=== PATIENT | male | born 1960 | race Caucasian/White ===

== ENCOUNTER 2018-07-14 11:50 | Emergency (ER) | payer MEDICARE, OTHER ==
[2018-07-14 12:37] VITALS: BP 102/70
--- NOTE | 2018-07-14 13:05 | UC ---
Respiratory Complaint HPI - HPI Summary HPI Summary: 57-year-old male presents with caregiver reporting 4 day history of nasal congestion, runny nose, and a nonproductive cough. States he was examined by the nurse at his alf today and was noted to have a temperature of 103 F. Denies ear pain, sore throat, chest pain, shortness of breath, abdominal pain, nausea, or vomiting. - History of Current Complaint Chief Complaint: UCRespiratory Stated Complaint: FEVER,CHEST CONGESTION Time Seen by Provider: 07/14/18 12:31 Hx Obtained From: Patient Pain Intensity: 0 - Allergies/Home Medications Allergies/Adverse Reactions: Allergies Allergy/AdvReac Type Severity Reaction Status Date / Time No Known Allergies Allergy Verified 07/14/18 12:25 Home Medications: Home Medications Aspirin EC TAB* [Ecotrin EC Low Dose 81 MG*] 81 mg PO DAILY 07/14/18 [History Confirmed 07/14/18] Atorvastatin* [Lipitor*] 20 mg PO DAILY 07/14/18 [History Confirmed 07/14/18] Calcium Carbonate CHEW TAB* [Tums*] 1,000 mg PO BID 07/14/18 [History Confirmed 07/14/18] PMH/Surg Hx/FS Hx/Imm Hx Endocrine History: Dyslipidemia GI/ History: Gastroesophageal Reflux - Surgical History Surgical History: Yes Surgery Procedure, Year, and Place: HERNIA REPAIR, [facility] - Family History Known Family History: Positive: Non-Contributory - Social History Occupation: Disabled Lives: [employer] Alcohol Use: Occasionally Substance Use Type: Marijuana Substance Use Comment - Amount & Last Used: BULMARO Smoking Status (MU): Heavy Every Day Tobacco Smoker Type: Cigarettes Amount Used/How Often: 1/2 PPD Review of Systems All Other Systems Reviewed And Are Negative: Yes Constitutional: Positive: Fever Skin: Negative: Rash ENT: Positive: Nasal Discharge, Sinus Congestion. Negative: Sore Throat, Ear Ache, Sinus Pain/Tenderness Respiratory: Positive: Cough. Negative: Shortness Of Breath Cardiovascular: Negative: Palpitations, Chest Pain Gastrointestinal: Negative: Abdominal Pain, Vomiting, Diarrhea, Nausea Genitourinary: Positive: Negative Musculoskeletal: Positive: Negative Neurological: Positive: Negative Is Patient Immunocompromised?: No Physical Exam - Summary Physical Exam Summary: GENERAL APPEARANCE: Well developed, well nourished, alert and cooperative, and appears to be in no acute distress. EYES: Left eye absent. Right eye conjunctiva clear. No drainage. EARS: External auditory canals membranes clear, hearing grossly intact. Right TM erythematous and bulging with large effusion. NOSE: Moderate to severe nasal congestion. THROAT: Pharyngeal cobblestoning. Post-nasal drip. No tonsilar inflammation, swelling, exudate, or lesions. Uvula midline. NECK: Neck supple, non-tender without lymphadenopathy. CARDIAC: Normal S1 and S2. No S3, S4 or murmurs. Rhythm is regular. There is no peripheral edema, cyanosis or pallor. Extremities are warm and well perfused. Capillary refill is less than 2 seconds. Peripheral pulses intact. LUNGS: Clear to auscultation without rales, wheezing or diminished breath sounds. Mild upper airway rhonchi. ABDOMEN: Positive bowel sounds. Soft, nondistended, nontender. No guarding or rebound. No masses or hepatosplenomegally. MUSKULOSKELETAL: ROM intact to all extremities. No joint erythema or tenderness. Normal muscular development. Normal gait. SKIN: Skin normal color, texture and turgor with no lesions or eruptions. Triage Information Reviewed: Yes Vital Signs: Initial Vital Signs Temp 99.7 F 07/14/18 12:28 Pulse 86 07/14/18 12:28 Resp 18 07/14/18 12:28 BP 102/70 07/14/18 12:28 Pulse Ox 96 07/14/18 12:28 Vital Signs Reviewed: Yes Diagnostics - Radiology No standard instances Radiology Interpretation Completed By: Radiologist Summary of Radiographic Findings: Order Information: CHEST PA LAT 2 VWS. Accession Number: [id number]. CPT: 82515. INDICATION: Cough, fever, congestion. COMPARISON: No relevant prior exams available on the [facility] for comparison. TECHNIQUE: Dual energy PA and routine lateral views of the chest were obtained. REPORT: Small dependent LEFT pleural effusion. Mild airspace consolidation at the bilateral lower lung zones. Negative for pneumothorax. The heart, pulmonary vasculature, and mediastinal contours are unremarkable. RIGHT upper quadrant surgical clips. IMPRESSION: #. The constellation of findings favors mild inflammatory infiltrates/pneumonia at the lung bases and small LEFT pleural effusion. Radiographic follow-up after therapy suggested to assess for resolution. Respiratory Course/Dx - Course Course Of Treatment: 57-year-old male presents with caregiver reporting 4 day history of nasal congestion, runny nose, and a nonproductive cough. States he was examined by the nurse at his alf today and was noted to have a temperature of 103 F. Denies ear pain, sore throat, chest pain, shortness of breath, abdominal pain, nausea, or vomiting. Afebrile. Vital signs stable. Exam revealed moderate to severe nasal congestion, right bulging erythematous TM with a large effusion, pharyngeal cobblestoning without tonsillar swelling or exudate, no cervical lymphadenopathy, clear bilateral breath sounds with some upper airway rhonchi, and otherwise unremarkable exam. Chest x-ray showed mild inflammatory infiltrates/pneumonia at the lung bases and small left pleural effusion. Discussed findings with patient. I will start him on doxycycline 100 mg twice a day 10 days to treat for a required pneumonia as well as right otitis media. Also recommending symptomatic treatment with fluticasone nasal spray and over- the-counter Sudafed for his nasal congestion as well and Tessalon Perles one capsule every 8 hours as needed for cough. He is to follow-up with his primary care provider in 3-5 days for recheck of symptoms. Anticipatory guidance and warning symptoms were reviewed with the patient and caregiver. Verbalized understanding and agreed with plan of care. - Differential Dx/Diagnosis Differential Diagnosis/HQI/PQRI: Bronchitis, Exacerbation Of COPD, Lower Resp Infection, Other - URI Provider Diagnosis: CAP (community acquired pneumonia), Right otitis media Discharge - Sign-Out/Discharge Documenting (check all that apply): Patient Departure All imaging exams completed and their final reports reviewed: Yes - Discharge Plan Condition: Stable Disposition: HOME Prescriptions: Benzonatate CAP* [Tessalon 100 MG CAP*] 100 mg PO TID PRN #30 cap PRN Reason: Cough Doxycycline Hyclate 100 mg PO BID #20 tablet Fluticasone NASAL SPRAY 50MCG* [Flonase NASAL SPRAY 50MCG*] 2 spray BOTH NARES DAILY #1 btl Patient Education Materials: Ear Infection (ED), Community Acquired Pneumonia ( ED) Referrals: Natasha Calderón MD [Primary Care Provider] - 3 Days Additional Instructions: The chest x-ray performed in the clinic today showed a possible bilateral pneumonia and your exam revealed an ear infection of the right ear. We will treat you with an antibiotic for the infections. Start doxycycline 100 mg 1 tab twice a day for 10 days. You should avoid milk products or use of TUMS for at least 2 hours before or after taking the antibiotic. You will also need to avoid sun exposure or take appropriate precautions including using a hat, long sleeves and pants, and sunscreen as this medication will cause you to burn more easily. Drink plenty of fluids to avoid dehydration especially if you are running any fever. Use fluticasone (Flonase) nasal spray 2 sprays each nostril once daily. You may also use an over the counter decongestant such as Sudafed according to directions as needed for congestion. Take Tessalon Perles 1 capsule every 8 hours as needed for cough. Take over the counter acetaminophen (Tylenol) or ibuprofen (Advil, Motrin) according to directions as needed for pain or fever. Follow up with your primary care provider in 3-5 days for recheck of symptoms. Seek immediate medical attention in the emergency room if you have fever greater than 100.5 F despite taking acetaminophen or ibuprofen, have chest pain , difficulty breathing, are unable to swallow, or have any worsening of symptoms. - Billing Disposition and Condition Condition: STABLE Disposition: Home
== END 2018-07-14 13:41 | disposition home or self-care (01) ==
LOC: UCCORT 11:50
DX: J18.9 Pneumonia, unspecified organism (principal); H66.91 Otitis media, unspecified, right ear; R09.81 Nasal congestion; R09.89 Other specified symptoms and signs involving the circulatory and respiratory systems; E78.5 Hyperlipidemia, unspecified; F17.210 Nicotine dependence, cigarettes, uncomplicated; Z79.82 Long term (current) use of aspirin; Z79.899 Other long term (current) drug therapy
CPT/HCPCS: 71046; 99212; G0463